=== PATIENT | male | born 1980 | race Caucasian/White ===

== ENCOUNTER 2023-09-06 15:16 | Emergency (ER) | payer BC, SELFPAY ==
[2023-09-06 15:28] VITALS: BP 152/89; PULSE 79; RESP 16; TEMP 38.1; O2SAT 98
--- NOTE | 2023-09-06 15:57 | ED.DENTAL ---
HPI - Dental/Oral General Chief complaint: Dental/Oral Stated complaint: Face Swelling Source: patient Mode of arrival: ambulatory Limitations: no limitations History of Present Illness HPI Narrative: Patient presents for evaluation of right-sided facial swelling. Symptom onset today. He noted some mild discomfort in the affected area yesterday but denies any pain either then or at the present time. He denies any dental pain, otalgia, tinnitus, hearing loss, drainage from right ear. Over the weekend he had a fever and cough but those symptoms have since resolved. He does use electronic cigarette. He was taking [id number] cough and cold medicine and Mucinex this past weekend when he had respiratory symptoms. Related Data Allergies Allergy/AdvReac Type Severity Reaction Status Date / Time No Known Allergies Allergy Verified 09/06/23 15:31 Review of Systems Review of Systems: CONSTITUTIONAL: Denies fever, chills, or sweats. EYES: Denies visual changes, redness, or discharge. ENT: Reports right-sided facial swelling CARDIOVASCULAR: Denies chest pain, palpitations, or edema. RESPIRATORY: Denies cough or dyspnea. GASTROINTESTINAL: Denies abdominal pain, nausea, vomiting, or diarrhea. GENITOURINARY: Denies dysuria or hematuria. SKIN: Denies rash or itching. MUSCULOSKELETAL: Denies back pain, joint pain, or myalgia. NEUROLOGIC: Denies headache, numbness, dizziness, or weakness. PSYCHIATRIC: Denies anxiety or depression. [facility] Past Medical History Medical History No pertinent past medical history Surgical History Surgical History No pertinent past surgical history Family History Family History Mother Family history non-contributory Social History Social History Smoking status: Current every day smoker Tobacco type: e-cigarettes/vaping Substance use: never Living arrangements: with family Gender identity (if verbalized by the patient): Male Sexual Orientation (if Verbalized by the Patient): Straight or Heterosexual Spiritual care concerns: No Exam Narrative: GENERAL: Well-appearing, well-nourished, and in no acute distress. HEAD: Atraumatic. EYES: PERRLA and EOMI. ENT: Nares clear, no rhinorrhea or epistaxis. Mucous membranes moist. Oropharynx without tonsillar hypertrophy exudate or other lesions. Bilateral TMs pearly connors nonbulging. there is no visible or palpable dental abscess. I do not appreciate any dental fractures. There is swelling to the right side of the face adjacent to the TMJ NECK: Supple. No adenopathy or masses. No carotid bruits or JVD CHEST: Clear to auscultation. No respiratory distress. No wheezes rales or rhonchi HEART: Regular rate and rhythm. No murmur heard. Normal peripheral pulses. ABDOMEN: Soft, nontender, nondistended, normal active bowel sounds. EXTREMITIES: Normal range of motion. No edema. SKIN: Warm, dry, no rash. NEURO: No focal deficits. Alert and oriented x3. PSYCH: Normal mood and affect. Course Course Emergency Course: this is a 43-year-old male who presented for evaluation of right-sided facial swelling. I suspect that he has a salivary duct stone, likely partially related to vaping and medications taken recently for respiratory symptoms that I would suspect have anticholinergic properties. I did offer to transfer him to the emergency department for labs and CT imaging. He declined. I think this is reasonable. He was instructed to suck on lemon drops and will discharge home with a prescription for Augmentin which she should take as directed. He should not use his electronic cigarette and should avoid [id number] cough cold medications for the time being. He should follow up outpatient for f
== END 2023-09-06 16:10 | disposition home or self-care (01) ==
PROVIDERS: Emergency Provider Nurse Practitioner
DX: K11.20 Sialoadenitis, unspecified (principal); F17.290 Nicotine dependence, other tobacco product, uncomplicated
CPT/HCPCS: 99213; G0463